=== PATIENT | male | born 1965 | race Caucasian/White ===

== ENCOUNTER 2017-10-12 12:27 | Emergency (ER) | payer OTHER ==
[~2017-10-12] VITALS: Ht 170.2 cm; Wt 72.6 kg
== END 2017-10-12 13:42 | disposition home or self-care (01) ==
LOC: ER 12:27
DX: S01.142A Puncture wound with foreign body of left eyelid and periocular area, initial encounter (principal); W26.8XXA Contact with other sharp object(s), not elsewhere classified, initial encounter; Y93.89 Activity, other specified; Y92.89 Other specified places as the place of occurrence of the external cause; Y99.8 Other external cause status